=== PATIENT | female | born 1955 | race Caucasian/White ===

== ENCOUNTER 2017-09-29 08:49 | Day surgery (SDC) | payer OTHER ==
[2017-09-29] MEDS ORDERED: MIDAZOLAM INJ 2 MG/2 ML VIAL (J2250) As Ordered (09:10)
[2017-09-29] MEDS ORDERED: fentaNYL 100 MCG/2 ML INJECTION (J3010) As Ordered (09:10)
[2017-09-29] MEDS: TROPICAMIDE 1% OPHTH SOLN 2ML OD (10:25)
[2017-09-29] MEDS: PHENYLEPHRINE 2.5% OPHTH SOL 2ML OD (10:25)
[2017-09-29] MEDS: PROPARACAINE 0.5% OPHTH SOL 15ML OD (10:25)
[2017-09-29] MEDS: OFLOXACIN 0.3 % (OCUFLOX) OPTH SOL 5ML OD (10:25)
[2017-09-29] MEDS: DUOVISC (0.50ML VISCOAT/0.55ML PROVISC) OPHTH KIT As Ordered (12:25)
[2017-09-29] MEDS: BALANCED SALT IRRIGATION SOLUTION 500ML BAG (FOR OR EYE MACHINE) As Ordered (12:25)
[2017-09-29] MEDS: POVIDONE-IODINE 5% OPHTH PREP SOL 30ML As Ordered (12:25)
[2017-09-29] MEDS: CEFUROXIME 1MG/0.1ML INTRACAMERAL INJ As Ordered (12:26)
[2017-09-29] MEDS: LIDOCAINE 0.75%/EPINEPHRINE 0.025% IN BSS 1ML SYR INTRACAMERAL (OR ONLY) As Ordered (12:26)
[2017-09-29] MEDS ORDERED: ONDANSETRON 4MG/2ML VIAL (J2405) IV (12:45)
[2017-09-29] MEDS ORDERED: ACETAMINOPHEN TAB 650MG DOSE (2X325MG) PO (12:45)
== END 2017-09-29 13:10 | disposition home or self-care (01) ==
LOC: M SDC 08:49
DX: H25.11 Age-related nuclear cataract, right eye (principal); I50.9 Heart failure, unspecified; F32.9 Major depressive disorder, single episode, unspecified; Z79.899 Other long term (current) drug therapy
CPT/HCPCS: 66984